=== PATIENT | female | born 1980 | race Caucasian/White ===

== ENCOUNTER 2020-01-08 14:40 | Emergency (ER) | payer OTHER, SELFPAY ==
--- NOTE | 2020-01-08 14:53 | XR_ITS ---
PROCEDURE: XR FOOT LT MIN 3V CLINICAL INDICATION: fell off of horse COMPARISON: No exams were available for comparison FINDINGS: No fracture or dislocation. No lytic or blastic change. There is normal mineralization. The joint spaces are well-preserved. No significant degenerative/arthritic changes. No erosive changes evident. Other findings:Small calcaneal spurs IMPRESSION: No acute findings. Dictated by: Dr. Zeb Francisco MD 01/08/2020 19:33 Dr. Zeb Francisco MD in [place] 01/08/2020 19:33
--- NOTE | 2020-01-08 14:53 | XR_ITS ---
PROCEDURE: XR ANKLE LT MIN 3V CLINICAL INDICATION: fell off of horse COMPARISON: No exams were available for comparison FINDINGS: There is mild diffuse soft tissue swelling laterally. The medial and lateral malleolus appear intact and the ankle mortise is normal. There are small spurs of the calcaneus at the insertion of the plantar tendon and Achilles tendon. IMPRESSION: Mild soft tissue swelling, no acute fracture seen Dictated by: Dr. Zeb Francisco MD 01/08/2020 19:32 Dr. Zeb Francisco MD in [place] 01/08/2020 19:32
[2020-01-08 14:54] VITALS: BP 129/65; PULSE 106; RESP 18; TEMP 36.6; O2SAT 98; BMI 26.6
--- NOTE | 2020-01-08 15:22 | HMH.EDUTC ---
[facility] [place] Clinical Impression: Ankle sprain Qualifiers: Encounter type: initial encounter Involved ligament of ankle: other ligament Laterality: left Qualified Code(s): S93.492A - Sprain of other ligament of left ankle, initial encounter Disposition: Home, Self-Care Condition on Discharge: Good Instructions: How to Use Crutches, How To Perform RICE (Rest, Ice, Compress, Elevate) Additional Instructions: *weight bearing as tolerated *RICE, Rest the extremity, Ice 15-20 minutes 3-4 times daily, Compress- wear the miguel wrap as discussed as much as possible to help reduce swelling and pain, Elevate the extremity when at rest *Miguel wrap is for support and help control swelling, use it except in the shower. Be sure that is not to tight but not to loose either *Elevate when resting *Ibuprofen every 6-8 hours as needed for pain an inflammation if you are able to take it, If need something more can take Tylenol in between doses of Ibuprofen to help Referrals: Risa Zhao [Primary Care Provider] - As needed Tonya Paris DPM [Staff Physician] - Shaylee Silva APRN [Nurse Practitioner] - Forms: Work/School Release Medical Decision Making - Ranulfo Inquiry Pt receiving controlled substance: No Ranulfo was queried for this patient: No Vital Signs: 01/08/20 14:54 Temperature 97.9 F Temperature Source Oral Pulse Rate [Radial] 106 H Respiratory Rate 18 Blood Pressure [Right Arm] 129/65 Blood Pressure Mean [Right Arm] 86 Blood Pressure Source [Right Arm] Automatic Cuff Blood Pressure Position [Right Arm] Sitting 02 Sat by Pulse Oximetry 98 Oxygen Delivery Method Room Air Orders (Tests/Meds): ORDERS Category Date Time Status XR ankle LT min 3V Stat Exams 01/08/20 14:53 Taken XR foot LT min 3V Stat Exams 01/08/20 14:53 Taken - Radiology Data #1 Image(s): Ankle Image Reviewed: Yes I reviewed the patient's radiology image Preliminary Findings: No Fracture Seen will place in walking boot, crutches and have patient follow up with Dr Paris #2 Image(s): Foot/Toes Image Reviewed: Yes I reviewed the patient's radiology image Preliminary Findings: No Fracture Seen - Physician Consults Physician Consulted: Gomez Time: 15:40 Reason -: Orthopedic Eval/Care Comment/Response: Spoke with Dr Dyer and he advised to place patient in walking boot, crutches, RICE and follow up with Dr Paris [facility] [place] - General Stated complaint: left ankle injury Time Seen by Provider: 01/08/20 15:00 Mode of Arrival: Ambulatory Source of Information: Patient Limitations: No Limitations Description of Symptoms (Recalled from Triage Doc. by RN): fell off horse while jumping. left foot was caught in stirrup. No LOC complaint of left ankle pain HEENT Symptoms (Recalled from RN notes): No Resp Symptoms (Recalled from RN notes): No Skin Symptoms (Recalled from RN notes): No MS Symptoms (Recalled from RN notes): Yes Functional Status (Recalled from RN notes): wnl - History of Present Illness Provider Complaint: Patient states that she was jumping horses around 1030am when she fell off the horse and got her foot caught in the stirrup States that she immediately had sharp pain in her left ankle and has continued to have pain throughout the day States that she has been unable to bare weight on it and continued to have worsening of swelling so she come in to get it checked - Related Data Allergies Allergy/AdvReac Type Severity Reaction Status Date / Time No Known Allergies Allergy Verified 01/08/20 14:58 - Worker's Comp Is this a Worker's Comp case?: No [facility] History - Hepatitis A Screen Drug use history?: No High risk sexual behaviors?: No History of sexually transmitted infection?: No Currently employed?: No Childcare worker?: No Do you have indoor plumbing?: Yes Do you have electricity?: Yes Attestation statement:: This patient has been screened for Hepatitis A risk factors. I have reviewed the patient
[2020-01-08 16:10] VITALS: BP 129/65; PULSE 106; RESP 18; TEMP 36.6; O2SAT 98
== END 2020-01-08 16:11 | disposition home or self-care (01) ==
PROVIDERS: Emergency Provider Nurse Practitioner; PCP Family Medicine
DX: S93.492A Sprain of other ligament of left ankle, initial encounter (principal); V80.010A Animal-rider injured by fall from or being thrown from horse in noncollision accident, initial encounter; Y92.89 Other specified places as the place of occurrence of the external cause
CPT/HCPCS: 29515; 73610; 73630; 99201

== ENCOUNTER 2020-07-05 15:00 | Outpatient (RCR) | payer OTHER, SELFPAY ==
--- NOTE | 2020-02-13 09:21 | HMH.PTOPEV ---
PT Outpatient Evaluation Rehab PT Outpatient Evaluation Start: 02/13/20 08:31 Freq: Status: Active Protocol: Document 02/13/20 08:32 YESENIA (Rec: 02/13/20 09:21 YESENIA [id number]) Electronically Signed By Homar Sr, PT 02/13/20 08:32 Outpatient Therapy Subjective History Subjective History Pt presents s/p fall from horse on 01/08/20 w/injury sustained to L ankle. Pt reports mostly lateral aspect L ankle pain since 'getting caught in stirrup', however, ' it's definitely getting better '. Pt reports WBAT w/1 crutch, intermittent L foot pain, and some N&T. Chief Complaint Pain,Stiff,Swelling, Paresthesia,Weakness Symptom Type Ache,Sharp,Dull,Numbness, Tingling Symptoms Relieved By Rest/Positioning,Ice,OTC Meds Symptoms Aggravated By Standing,Physical Activity, Walking Prior Functional Limitations Standing,Walking,Stairs Current Functional Limitations Standing,Recreation Activity, Walking,Stairs Symptom Description Constant but Variable Level of pain today (0-10) 3 Pain scale - at its best (0-10) 2 Pain scale - at its worst (0-10) 6 Ankle/Foot Eval Gait Observation General Gait Pattern Observation Antalgic Gait,Decrease Weight Bear (L) Assistive Device Ambulation Assistive Device Axillary Crutches Palpation Tenderness left Ankle/Foot Palpation Findings Tenderness Ankle/Foot Palpation Overall Comment peroneal inserion 3/4 ROM Ankle/Foot Dorsiflexion w/Knee Extended 0 Active Range Motion (degrees) Ankle/Foot Plantar Flexion Active Range 0-40 of Motion (degrees) Ankle/Foot Eversion Active Range of 0-10 Motion (degrees) Ankle/Foot Inversion Active Range of 0-25 Motion (degrees) Ankle/Foot ROM Limitations Pain MMT Ankle Dorsiflexion Strength Grade 4 Good Ankle Plantarflexion Strength Grade 4- Good- Foot Eversion Strength Grade 4- Good- Foot Inversion Strength Grade 4 Good Special Tests Talar Tilt Test Positive Left Ankle Inversion (supination) Test Positive Left Outpatient Therapy Assessment Impairments Problems/Impairmments Palpation Tenderness,Impaired Range of Motion,Impaired Strength,Impaired Gait Pattern ,Impaired Walking,Impaired Standing,Impaired Recreational
--- NOTE | 2020-03-16 10:12 | HMH.RHREAS ---
Rehab Reassessment Rehab OP Re-assessment Start: 03/16/20 09:51 Freq: Status: Active Protocol: Document 03/16/20 09:55 YESENIA (Rec: 03/16/20 10:08 [email or web address] [id number]) Electronically Signed By Homar Sr, PT 03/16/20 09:55 Rehab Re-assessment Subjective Subjective PT REPORTS 0-2/10 L ANKLE PAIN ON VAS, AND FEELS 80% BETTER OVERALL SINCE I EVAL Objective Objective Notes AROM: L ANKLE 0-5, PF 0-45, INV 0-32, EVR 0-15 MMT: L ANKLE DF 4-4+/5, PF 4/5 , INV 4-4+/5, EVR 4/5 TTP: MEDIAL JT LINE/DELTOID LIG 1-2/4, PERONEAL INSERTION 1-2/4 GAIT: WFL NO AD Assessment Progress Assessment Progressing as Expected Assessment Notes PT W/IMPROVED ROM, STRENGTH, AND TTP Patient goals met STG'S 10/14 LTG'S 05/18 Goals Not Met LTG'S 11/18 Plan Plan PT TO CONT. W/SKILLED P.T. TO MAKE FURTHER IMPROVEMENTS IN ROM, STRENGTH, AND TTP TO ALLOW FOR OPTIMAL FUNCTION Frequency of Therapy 1-2X/WK Duration of therapy 3-4 WKS Time and Billing Re-Eval Time 15 Re-Eval Billing Units 1 PHYSICIAN CERTIFICATION: I certify the specified therapy services for Ely Elizabeth are required, authorized, and reviewed every 30 days.
--- NOTE | 2020-05-01 14:36 | HMH.RHREAS ---
Rehab Reassessment Rehab OP Re-assessment Start: 03/16/20 09:51 Freq: Status: Active Protocol: Document 05/01/20 14:32 YESENIA (Rec: 05/01/20 14:36 YESENIA [id number]) Electronically Signed By Homar Sr, PT 05/01/20 14:32 Rehab Re-assessment Subjective Subjective PT REPORTS 2-3/10 L ANKLE PAIN ON VAS, AND FEELS 80% BETTER OVERALL SINCE I EVAL. 'IT'S REALLY BEEN MORE IRRITATED THAN I WOULD LIKE SINCE I INCREASED MY YOGA WORKOUT TO LEVEL 3.' PT REPORTS GLOBAL L ANKLE PAIN /SORENESS THIS PM Objective Objective Notes AROM: L ANKLE 0-5, PF 0-45, INV 0-35, EVR 0-15 MMT: L ANKLE DF 4+-5/5, PF 4+- 5/5, INV 4+/5, EVR 4+/5 TTP: MEDIAL JT LINE/DELTOID LIG 2/4, PERONEAL INSERTION 2/ 4 GAIT: WFL NO AD Assessment Progress Assessment Slower Than Expected Assessment Notes PT WITH INCREASED TTP, HOWEVER , SHOWS IMPROVED STRENGTH Patient goals met STG'S 10/14 LTG'S 08/18 Goals Not Met LTG'S 08/18 Plan Plan PT TO CONT. W/SKILLED P.T. TO MAKE FURTHER IMPROVEMENTS IN ROM, STRENGTH, AND TTP TO ALLOW FOR OPTIMAL FUNCTION Frequency of Therapy 1-2X/WK Duration of therapy 2-4WKS Time and Billing Re-Eval Time 15 Re-Eval Billing Units 1 PHYSICIAN CERTIFICATION: I certify the specified therapy services for Ely Elizabeth are required, authorized, and reviewed every 30 days.
--- NOTE | 2020-06-05 16:06 | HMH.RHREAS ---
Rehab Reassessment Rehab OP Re-assessment Start: 03/16/20 09:51 Freq: Status: Active Protocol: Document 06/05/20 15:59 [email or web address] (Rec: 06/05/20 16:06 YESENIA [id number]) Electronically Signed By Homar Sr, PT 06/05/20 15:59 Rehab Re-assessment Subjective Subjective PT REPORTS 2/10 L ANKLE PAIN ON VAS, AND FEELS 90-95% BETTER OVERALL SINCE I EVAL. Objective Objective Notes AROM: L ANKLE 0-10, PF 0-45, INV 0-45, EVR 0-15 MMT: L ANKLE DF 5/5, PF 5/5, INV 4+/5, EVR 4+/5 TTP: MEDIAL JT LINE/DELTOID LIG 0/4, PERONEAL INSERTION 1- 2/4 GAIT: WFL NO AD Assessment Progress Assessment Progressing as Expected Assessment Notes PT W/IMPROVED STRENGTH, ROM, AND TTP Patient goals met STG'S 10/14 LTG'S 12/18 Goals Not Met LTG'S 04/20 Plan Plan PT TO CONT. W/SKILLED P.T. TO MAKE FURTHER IMPROVEMENTS IN ROM, STRENGTH, AND TTP TO ALLOW FOR OPTIMAL FUNCTION Frequency of Therapy 1-2X/WK Duration of therapy 2-4WKS Time and Billing Re-Eval Time 15 Re-Eval Billing Units 1 PHYSICIAN CERTIFICATION: I certify the specified therapy services for Ely Elizabeth are required, authorized, and reviewed every 30 days.
== END 2020-07-05 15:05 | disposition home or self-care (01) ==
LOC: PT 15:00
PROVIDERS: PCP Family Medicine; Visit Provider Podiatrist
DX: M76.72 Peroneal tendinitis, left leg (principal); S93.492D Sprain of other ligament of left ankle, subsequent encounter
CPT/HCPCS: 97010; 97014; 97016; 97033; 97035; 97110; 97112; 97140; 97163; 97164; G0283

== ENCOUNTER 2020-10-07 05:33 | Emergency (ER) | payer OTHER, SELFPAY ==
--- NOTE | 2020-10-07 05:34 | ECG_ITS ---
APPROVED REPORT Exam: Resting ECG HR:76 bpm ECG Measurements Heart Rate 76 AXES GA 132 P 11 QRSd 88 QRS 41 QT 378 T 40 QTc 425 Conclusion Normal sinus rhythm with sinus arrhythmia Normal ECG Electronically signed by : Quentin Acuña, 10/07/2020 20:39:49
--- NOTE | 2020-10-07 05:35 | HMH.EDCP ---
ED Disposition Clinical Impression: Chest pain Qualifiers: Chest pain type: other chest pain Qualified Code(s): R07.89 - Other chest pain Disposition: Home, Self-Care Condition on Discharge: Good Instructions: DI for Atypical Chest Pain Referrals: Risa Zhao [Primary Care Provider] - - Critical Care Critical Care Time: No Attestation: On , the high probability of a clinically significant, sudden or life threatening deterioration of the following system(s) required my full and direct attention, intervention and personal management. The time I documented below is in addition to time spent performing reported procedures but includes the following listed in this critical care notation. Medical Decision Making - Ranulfo Inquiry Pt receiving controlled substance: No Vital Signs: 10/07/20 05:37 10/07/20 06:30 10/07/20 07:00 Temperature 98.2 F Temperature Source Oral Pulse Rate 72 68 Pulse Rate [Right Brachial] 75 Respiratory Rate 16 14 18 Blood Pressure 103/57 L 114/69 Blood Pressure [Right Arm] 137/70 Blood Pressure Mean 77 Blood Pressure Mean [Right Arm] 92 Blood Pressure Source [Right Arm] Automatic Cuff Blood Pressure Position [Right Arm] Sitting 02 Sat by Pulse Oximetry 98 95 96 Oxygen Delivery Method Room Air Room Air 10/07/20 07:30 Temperature Temperature Source Pulse Rate 80 Pulse Rate [Right Brachial] Respiratory Rate 16 Blood Pressure 112/74 Blood Pressure [Right Arm] Blood Pressure Mean 85 Blood Pressure Mean [Right Arm] Blood Pressure Source [Right Arm] Blood Pressure Position [Right Arm] 02 Sat by Pulse Oximetry 96 Oxygen Delivery Method - Lab Data Lab Results 10/07/20 05:35: WBC 8.7, RBC 5.02, Hgb 14.3, Hct 42.6, MCV 84.9, MCH 28.5, MCHC 33.6, RDW 13.6, Plt Count 202, MPV 8.6, Neut % (Auto) 63.0, Lymph % (Auto) 27.1, [place] % (Auto) 6.0, Eos % (Auto) 3.0, Baso % (Auto) 0.9, Neut # (Auto) 5.5, Lymph # (Auto) 2.4, [place] # (Auto) 0.5, Eos # (Auto) 0.3, Baso # (Auto) 0.1 10/07/20 05:35: Sodium 139, Potassium 3.9, Chloride 105, Carbon Dioxide 27, Anion Gap 10.9, BUN 16, Creatinine 0.80, Estimated Creat Clear 116, Estimated GFR 80, Est GFR ( Amer) 97, Glucose 112 H, Calcium 8.9, Total Bilirubin 0.4, Direct Bilirubin 0.4, Conjugated Bilirubin 0.0, Indirect Bilirubin 0.0, Unconjugated Bilirubin 0.1, AST 30, ALT 26, Alkaline Phosphatase 54, Troponin I < 0.01, Total Protein 7.3, Albumin 4.5 10/07/20 05:35: D-Dimer 0.31 10/07/20 07:40: Troponin I 0.02 Result diagrams: 10/07/20 05:35 10/07/20 05:35 Orders (Tests/Meds): ED MEDICATIONS Discontinued Medications Generic Name Dose Route Start Last Admin Trade Name Freq PRN Reason Stop Dose Admin Fentanyl Citrate 50 mcg 10/07/20 05:44 10/07/20 06:07 Fentanyl 100mcg/2ml Vial IV 10/07/20 05:45 50 mcg ONCE ONE Administration ORDERS Category Date Time Status Chest XR 2 view (NOT portable) [XR chest 2V] Stat Exams 10/07/20 05:41 Taken Troponin I Q3H Lab 10/07/20 11:45 Ordered - CHAYO Score for Non-Stemi Age of Patient: 30-39 years old Heart Rate: 70-89 bpm Systolic Blood Pressure: 120-139 mmhg Serum Creatinine: 0.80-1.19 mg/dl CHF Killip Class: I-No CHF Other Risk Factors: None Non-Stemi Risk Score: 58 Medical Decision Narrative: Upon arrival patient is hemodynamically stable afebrile overall nontoxic-appearing. She is presenting with 2-hour history of acute onset chest pain. Differential clues which is not limited to ACS, NSTEMI, pneumothorax, aortic injury, pericarditis, pneumonia, pleuritis, musculoskeletal pain. Given this will obtain laboratory work-up along with troponins and EKG and chest x-ray. History is inconsistent with aortic dissection at this time patient describes no ripping back pain as low risk factors putting no hypertension and appears uncomfortable but overall in no acute distress. EKG was obtained immediately upon arrival interpreted independently overall unr
[2020-10-07 05:37] VITALS: BP 137/70; PULSE 75; RESP 16; TEMP 36.8; O2SAT 98; BMI 26.9
--- NOTE | 2020-10-07 05:41 | XR_ITS ---
PROCEDURE INFORMATION: Exam: XR Chest Exam date and time: 10/07/2020 5:41 AM Age: 40 years old Clinical indication: Right-sided; Patient HX: Chest pain on right back side that wrap around to chest TECHNIQUE: Imaging protocol: XR of the chest. Views: 2 views. COMPARISON: No relevant prior studies available. FINDINGS: Lungs: Unremarkable. No consolidation. Pleural spaces: Unremarkable. No pleural effusion. No pneumothorax. Heart/Mediastinum: Unremarkable. No cardiomegaly. Bones/joints: Unremarkable. IMPRESSION: No acute findings.
[2020-10-07 06:02] LABS: Basophils # 0.1 K/mm3 (0-0.2); Basophils % 0.9 % (0.1-2.0); Eosinophils # 0.3 K/mm3 (0.0-0.4); Hematocrit 42.6 % (37.0-47.0); Hemoglobin 14.3 g/dL (12.2-16.2); Lymphocytes # 2.4 K/mm3 (0.7-4.5); Lymphocytes % 27.1 % (10-50); Mean Corpuscular HGB Conc 33.6 g/dL (31.8-35.4); Mean Corpuscular Hemoglobin 28.5 pg (27.0-31.2); Mean Corpuscular Volume 84.9 fl (81-99); Mean Platelet Volume 8.6 fl (7.4-10.4); Monocytes # 0.5 K/mm3 (0.1-1.0); Neutrophils # 5.5 K/mm3 (1.8-7.8); Platelet Count 202 K/mm3 (142-424); Red Blood Count 5.02 M/mm3 (4.20-5.40); Red Cell Distribution Width 13.6 % (11.5-17.5); White Blood Count 8.7 K/mm3 (4.8-10.8)
[2020-10-07 06:04] LABS: Chloride 105 mmol/L (98-107); Sodium 139 mmol/L (136-145)
[2020-10-07 06:05] LABS: Potassium 3.9 mmoL/L (3.5-5.1)
[2020-10-07 06:07] LABS: Alanine Aminotransferase 26 U/L (12-78); Alkaline Phosphatase 54 U/L (38-126); Aspartate Amino Transferase 30 U/L (14-36); Bilirubin,Direct 0.4 mg/dl (0.0-0.4); Bilirubin,Total 0.4 mg/dl (0.2-1.3); Bilirubin,Unconjugated 0.1 mg/dL (0.0-1.1); Blood Urea Nitrogen 16 mg/dl (7-17); Calcium 8.9 mg/dl (8.4-10.2); Carbon Dioxide 27 mmol/L (22.0-30.0); Creatinine Clearance Estimated 116 mL/min (50-200); Estimated Glomerular Filt Rate 80 ml/min (>60); GFR (African American) 97 ML/MIN (>60); Glucose 112 mg/dl (74-100)
[2020-10-07 06:08] LABS: Albumin Level 4.5 g/dl (3.5-5.0); Total Protein,Serum 7.3 g/dl (6.3-8.2)
[2020-10-07 06:13] LABS: D-Dimer 0.31 ug/mL (0.0-0.5)
[2020-10-07 06:28] LABS: Troponin I < 0.01 ng/ml (0.00-0.034)
[2020-10-07 06:30] VITALS: BP 103/57; PULSE 72; RESP 14; O2SAT 95
[2020-10-07 06:53] LABS: Anion Gap 10.9 mEq/L (5-15)
[2020-10-07 07:00] VITALS: BP 114/69; PULSE 68; RESP 18; O2SAT 96
[2020-10-07 07:30] VITALS: BP 112/74; PULSE 80; RESP 16; O2SAT 96
[2020-10-07 08:26] LABS: Troponin I 0.02 ng/ml (0.00-0.034)
[2020-10-07 09:17] VITALS: BP 121/65; PULSE 78; RESP 16; TEMP 36.6; O2SAT 98
== END 2020-10-07 09:18 | disposition home or self-care (01) ==
PROVIDERS: Emergency Provider Emergency Medicine; PCP Family Medicine
DX: R07.89 Other chest pain (principal); G43.709 Chronic migraine without aura, not intractable, without status migrainosus; N28.9 Disorder of kidney and ureter, unspecified
CPT/HCPCS: 71046; 80048; 80076; 84484; 85025; 85378; 93005; 96374; 99283

== ENCOUNTER 2020-10-07 18:23 | Emergency (ER) | payer OTHER, SELFPAY ==
[2020-10-07 18:23] VITALS: BP 137/79; PULSE 104; RESP 22; TEMP 37.1; O2SAT 96; BMI 26.9
--- NOTE | 2020-10-07 18:48 | ECG_ITS ---
APPROVED REPORT Exam: Resting ECG HR:89 bpm ECG Measurements Heart Rate 89 AXES AK 144 P 54 QRSd 80 QRS 45 QT 344 T 50 QTc 418 Conclusion Normal sinus rhythm Nonspecific ST abnormality Abnormal ECG Electronically signed by : Quentin Acuña, 10/09/2020 08:30:57
--- NOTE | 2020-10-07 18:48 | XR_ITS ---
PROCEDURE INFORMATION: Exam: XR Chest Exam date and time: 10/07/2020 6:48 PM Age: 40 years old Clinical indication: Sternal or substernal pain; Patient HX: Chest pain; Additional info: Cp TECHNIQUE: Imaging protocol: XR of the chest. Views: 2 views. COMPARISON: CR XR CHEST 2V 10/07/2020 5:58 AM FINDINGS: Lungs: Unremarkable. No consolidation. Pleural spaces: Unremarkable. No pleural effusion. No pneumothorax. Heart/Mediastinum: Unremarkable. No cardiomegaly. Bones/joints: Unremarkable. IMPRESSION: No acute findings.
[2020-10-07 19:18] LABS: Basophils # 0.1 K/mm3 (0-0.2); Basophils % 0.9 % (0.1-2.0); Eosinophils # 0.1 K/mm3 (0.0-0.4); Eosinophils % 1.4 % (0.1-12.0); Hematocrit 41.2 % (37.0-47.0); Lymphocytes # 2.2 K/mm3 (0.7-4.5); Lymphocytes % 23.5 % (10-50); Mean Corpuscular HGB Conc 33.8 g/dL (31.8-35.4); Mean Corpuscular Hemoglobin 28.4 pg (27.0-31.2); Mean Corpuscular Volume 83.8 fl (81-99); Mean Platelet Volume 9.2 fl (7.4-10.4); Monocytes # 0.9 K/mm3 (0.1-1.0); Monocytes % 8.9 % (1.7-9.3); Neutrophils # 6.2 K/mm3 (1.8-7.8); Neutrophils % 65.3 % (37.0-80.0); Platelet Count 206 K/mm3 (142-424); Red Blood Count 4.92 M/mm3 (4.20-5.40); Red Cell Distribution Width 13.5 % (11.5-17.5); White Blood Count 9.5 K/mm3 (4.8-10.8)
--- NOTE | 2020-10-07 19:30 | HMH.EDGENADL ---
ED Disposition Clinical Impression: Atypical chest pain Disposition: Home, Self-Care Condition on Discharge: Good Additional Instructions: medications as directed. Follow up with PCP. Return to ED if new symptoms or recurrent symptoms. Prescriptions: Tizanidine HCl [Zanaflex 4mg tab] 4 mg PO TID PRN #30 tab PRN Reason: Muscle Spasm Transmission Status: Pending to [facility] Referrals: Risa Zhao [Primary Care Provider] - - Critical Care Critical Care Time: No Attestation: On 10/07/20, the high probability of a clinically significant, sudden or life threatening deterioration of the following system(s) required my full and direct attention, intervention and personal management. The time I documented below is in addition to time spent performing reported procedures but includes the following listed in this critical care notation. Medical Decision Making - Ranulfo Inquiry Pt receiving controlled substance: No Ranulfo was queried for this patient: No Vital Signs: 10/07/20 18:23 Temperature 98.7 F Temperature Source Oral Pulse Rate [Right Radial] 104 H Respiratory Rate 22 Blood Pressure [Right Arm] 137/79 Blood Pressure Mean [Right Arm] 98 Blood Pressure Source [Right Arm] Automatic Cuff Blood Pressure Position [Right Arm] Sitting 02 Sat by Pulse Oximetry 96 Oxygen Delivery Method Room Air - Lab Data Lab Results 10/07/20 19:00: WBC 9.5, RBC 4.92, Hgb 14.0, Hct 41.2, MCV 83.8, MCH 28.4, MCHC 33.8, RDW 13.5, Plt Count 206, MPV 9.2, Neut % (Auto) 65.3, Lymph % (Auto) 23.5, Bowman % (Auto) 8.9, Eos % (Auto) 1.4, Baso % (Auto) 0.9, Neut # (Auto) 6.2, Lymph # (Auto) 2.2, Bowman # (Auto) 0.9, Eos # (Auto) 0.1, Baso # (Auto) 0.1 10/07/20 19:00: Sodium 138, Potassium 4.0, Chloride 104, Carbon Dioxide 25, Anion Gap 13.0, BUN 15, Creatinine 0.70, Estimated Creat Clear 133, Estimated GFR 93, Est GFR ( Amer) 113, Glucose 108 H, Calcium 8.8, Total Bilirubin 0.7, AST 32, ALT 24, Alkaline Phosphatase 40, Troponin I < 0.01, Total Protein 7.0, Albumin 4.3, Globulin 2.7, Albumin/Globulin Ratio 1.6 Result diagrams: 10/07/20 19:00 10/07/20 19:00 Orders (Tests/Meds): ED MEDICATIONS Discontinued Medications Generic Name Dose Route Start Last Admin Trade Name Freq PRN Reason Stop Dose Admin Belladonna Alkaloids 60 ml 10/07/20 18:50 10/07/20 19:02 Gi Cocktail 60ml Udc PO 10/07/20 18:51 60 ml ONCE ONE Administration Tizanidine HCl 4 mg 10/07/20 19:30 Tizanidine 4mg Tablet PO 10/07/20 19:31 ONCE STA ORDERS Category Date Time Status Troponin I Q3H Lab 10/07/20 22:00 Ordered Troponin I Q3H Lab 10/08/20 01:00 Ordered General Adult HPI - General Chief complaint: Recheck/Abnormal Lab/Rx Stated complaint: reaction to Medication Time Seen by Provider: 10/07/20 19:30 Mode of Arrival: Ambulatory Limitations: No Limitations Description of Symptoms (Recalled from ER Triage Doc. by RN): Pt states that she was in ED early this AM with CP and was given Fentanyl. Pt states that approx 1600 she began to experience CP again that had worsened in the center of her chest, radiating up into her throat, and around into her back under her left scapula. Pt crying at this time. Pt advises of concern that she is having a reaction to the fentanyl since she only has one kidney, - History of Present Illness HPI narrative: 40-year-old female who complains of epigastric pain and sternal pain.started this morning. she had episodes loke those before. no acid reflux. no radiation. she was in ED this morning for this problem and had Fentanyl injection for it. she has chronic neck pain. no history of CAD. - Related Data Previous Rx's Medication Instructions Recorded Tizanidine HCl [Zanaflex 4mg 4 mg PO TID PRN #30 tab 10/07/20 tab] Allergies Allergy/AdvReac Type Severity Reaction Status Date / Time No Known Allergies Allergy Verified 05/22/20 09:29 [facility] Histor
[2020-10-07 20:02] LABS: Alanine Aminotransferase 24 U/L (12-78); Albumin Level 4.3 g/dl (3.5-5.0); Albumin/Globulin Ratio 1.6 (1.1-1.8); Alkaline Phosphatase 40 U/L (38-126); Aspartate Amino Transferase 32 U/L (14-36); Bilirubin,Total 0.7 mg/dl (0.2-1.3); Blood Urea Nitrogen 15 mg/dl (7-17); Calcium 8.8 mg/dl (8.4-10.2); Carbon Dioxide 25 mmol/L (22.0-30.0); Chloride 104 mmol/L (98-107); Creatinine Clearance Estimated 133 mL/min (50-200); Estimated Glomerular Filt Rate 93 ml/min (>60); GFR (African American) 113 ML/MIN (>60); Globulin 2.7 g/dL (1.3-3.2); Glucose 108 mg/dl (74-100); Sodium 138 mmol/L (136-145)
[2020-10-07 20:14] LABS: Troponin I < 0.01 ng/ml (0.00-0.034)
[2020-10-07 20:53] VITALS: BP 118/74; PULSE 73; RESP 18; TEMP 36.8; O2SAT 98
== END 2020-10-07 20:55 | disposition home or self-care (01) ==
PROVIDERS: Emergency Provider Internal Medicine; PCP Family Medicine
DX: R07.89 Other chest pain (principal); N28.9 Disorder of kidney and ureter, unspecified; G43.709 Chronic migraine without aura, not intractable, without status migrainosus
CPT/HCPCS: 71046; 80053; 84484; 85025; 93005; 99282

== ENCOUNTER → 2020-11-19 16:18 | Outpatient (CLI) | payer OTHER, SELFPAY ==
--- NOTE | 2020-11-19 16:21 | MR_ITS ---
PROCEDURE: MR CERVICAL SPINE WO CON CLINICAL INDICATION: NECK PAIN COMPARISON: No exams were available for comparison TECHNIQUE: Standard multiplanar multiecho sequences are performed without contrast. 3-D MIP and myelographic images are also rendered and reviewed FINDINGS: There is normal alignment. There is mild cerebellar tonsillar ectopia of approximately 4 mm. This involves the right cerebellar tonsil. The left cerebellar tonsil is normal in position. C2-C3: Unremarkable. C3-C4: Minimal bulging disc with mild degenerative disc disease. C4-C5: Mild left-sided foraminal narrowing from uncovertebral hypertrophy. C5-C6: Mild degenerative disc disease with a small broad-based left paracentral disc protrusion with a small focal area of increased T2 signal along the inferior aspect of the disc protrusion. There is canal stenosis at this level at 9 mm with minimal impingement upon the anterior aspect of the cord. There is mild left lateral recess narrowing. C6-C7: Degenerative disc disease with mild bulging disc with canal stenosis of 9 mm. The disc does abut the anterior aspect of the cord centrally. There is mild bilateral foraminal narrowing from uncovertebral hypertrophy. This is slightly greater on the left. C7-T1: Unremarkable. IMPRESSION: 1. Right-sided cerebellar tonsillar ectopia. 2. C3-C4: Minimal bulging disc with mild degenerative disc disease. 3. C4-C5: Mild left-sided foraminal narrowing from uncovertebral hypertrophy. 4. C5-C6: Mild degenerative disc disease with a small broad-based left paracentral disc protrusion with a small focal area of increased T2 signal along the inferior aspect of the disc protrusion. There is canal stenosis at this level at 9 mm with minimal impingement upon the anterior aspect of the cord. There is mild left lateral recess narrowing. 5. C6-C7: Degenerative disc disease with mild bulging disc with canal stenosis of 9 mm. The disc does abut the anterior aspect of the cord centrally. There is mild bilateral foraminal narrowing from uncovertebral hypertrophy. This is slightly greater on the left Dictated by: Osiel Galeana MD 11/20/2020 11:55 Osiel Galeana MD in [place] 11/20/2020 11:55
== END ==
PROVIDERS: PCP Family Medicine; Visit Provider Family Medicine
DX: M54.12 Radiculopathy, cervical region (principal)
CPT/HCPCS: 72141; 76376